=== PATIENT | female | born 1955 | race Caucasian/White ===

== ENCOUNTER → 2017-04-22 | Outpatient (CLI) | payer BC ==
--- NOTE | 2017-04-22 10:46 | REPMRS ---
Patient History The patient states she had a clinical breast exam in 03/2017. Patient is postmenopausal. Family history of breast cancer in maternal grandmother at age 50 or over. Digital Woman Screen Mammo: April 22, 2017 - Exam #: [id number] Bilateral CC and MLO view(s) were taken. Technologist: Fide Oliver, Technologist Prior study comparison: February 20, 2016, digital woman screen mammo performed at [facility]. May 11, 2014, digital woman screen mammo performed at [facility]. April 21, 2013, digital woman screen mammo performed at [facility]. FINDINGS: The breast tissue is almost entirely fat. There has been no change in the appearance of the mammogram from the prior studies. There is no interval development of dominant mass, architectural distortion, or clustered microcalcification typical of malignancy. ASSESSMENT: BI-RADS/ACR category 1 mammogram. Negative. Recommendation Routine screening mammogram of both breasts in 1 year (for women over age 40). This mammogram was interpreted with the aid of an FDA-approved computer-aided dectection system. Electronically Signed By: Salvatore Manning MD 04/22/17 2618
== END ==
LOC: M WHC 08:04
PROVIDERS: ATTEND Nurse Practitioner Women's Health
DX: Z12.31 Encounter for screening mammogram for malignant neoplasm of breast (principal)

== ENCOUNTER → 2017-04-22 | Outpatient (REF) | payer BC | LOC: M SFHCWAGY 08:37 | PROVIDERS: ATTEND Nurse Practitioner Women's Health | DX: Z12.4 Encounter for screening for malignant neoplasm of cervix (principal) ==

== ENCOUNTER → 2018-04-23 | Outpatient (CLI) | payer BC | LOC: M WHC 08:08 | DX: Z12.31 Encounter for screening mammogram for malignant neoplasm of breast (principal); Z78.0 Asymptomatic menopausal state; Z80.3 Family history of malignant neoplasm of breast | CPT/HCPCS: 77067 ==

== ENCOUNTER → 2018-08-07 | Outpatient (CLI) | payer BC ==
--- NOTE | 2018-08-07 10:17 | REP ---
PA and lateral chest: There are no comparisons. The lung cespedes are clear. The cardiac size is normal. The yao, mediastinum, and skeletal structures are unremarkable. Impression: Negative PA and lateral chest. The lung cespedes are clear. Electronically Signed by Chandan Malone MD 08/07/2018 10:09 A
== END ==
LOC: M RAD 07:48
PROVIDERS: ATTEND Nurse Practitioner Adult Health
DX: R05 Cough (principal)

== ENCOUNTER → 2019-07-21 | Outpatient (CLI) | payer BC ==
--- NOTE | 2019-07-21 11:42 | REPMRS ---
Patient History The patient states she had a clinical breast exam in June 2019. Family history of breast cancer at age 50 or over in maternal grandmother. No Hormone Replacement Therapy Digital Woman Screen Mammo: July 21, 2019 - Exam #: [id number] Bilateral CC and MLO view(s) were taken. Technologist: Chayito Louie Technologist Prior study comparison: April 23, 2018, bilateral digital woman screen mammo performed at [facility]. April 22, 2017, digital woman screen mammo performed at [facility]. February 20, 2016, digital woman screen mammo performed at [facility]. FINDINGS: The breast tissue is almost entirely fat. There has been no change in the appearance of the mammogram from the prior studies. There is no interval development of dominant mass, architectural distortion, or grouped microcalcification typical of malignancy. 3-D tomosynthesis shows no additional findings. Assessment: BI-RADS/ACR category 1 mammogram. Negative Mammogram. Recommendation Routine screening mammogram of both breasts in 1 year (for women over age 40). This patient's Lifetime Breast Cancer RIsk is estimated at 9.8 %. This mammogram was interpreted with the aid of an FDA-approved computer-aided dectection system. Electronically Signed By: Salvatore Manning MD 07/21/19 2434
== END ==
LOC: M WHC 08:36
PROVIDERS: ATTEND Nurse Practitioner Women's Health
DX: Z12.31 Encounter for screening mammogram for malignant neoplasm of breast (principal)

== ENCOUNTER → 2020-03-15 | Outpatient (CLI) | payer BC ==
[~2020-03-15] MED LIST: GOOD81CH2 PO; IRBE150T14 PO; MULTCAP PO; VITA-243 PO; VITA400C53 PO; XALA0.007 OU
== END ==
LOC: M LABSMTC 12:10
PROVIDERS: ATTEND Anesthesiology
DX: Z01.812 Encounter for preprocedural laboratory examination (principal); Z20.828 Contact with and (suspected) exposure to other viral communicable diseases
CPT/HCPCS: C9803; U0003

== ENCOUNTER 2020-03-20 08:13 | Day surgery (SDC) | payer BC ==
[~2020-03-20] VITALS: Ht 160 cm; Wt 103.9 kg
[~2020-03-20 08:13] MED LIST changes: +NS 1,000 ML IV ONE
[2020-03-20] MEDS ORDERED: LIDOCAINE 2% 100MG/5ML SDV (FOR ANES.) As Ordered ONE (09:12)
[2020-03-20] MEDS ORDERED: propofoL 200 MG/20 ML VIAL As Ordered ONE (09:12)
--- NOTE | 2020-03-20 09:57 | ROOR ---
Patient Name: Shelly Bojorquez Procedure Date: 03/20/2020 9:28 AM Date of : 1955 Age: 65 Room: [facility] Gender: Female Note Status: Finalized Procedure: Total Colonoscopy to Cecum Indications: Screening for colorectal malignant neoplasm Providers: Cody Del Rio MD Referring MD: Kirsty Demarco NP Requesting Provider: Medicines: Monitored Anesthesia Care Complications: No immediate complications. Procedure: Pre-Anesthesia Assessment: - The heart rate, respiratory rate, oxygen saturations, blood pressure, adequacy of pulmonary ventilation, and response to care were monitored throughout the procedure. The Colonoscope was introduced through the anus and advanced to the cecum, identified by appendiceal orifice and ileocecal valve. The colonoscopy was performed without difficulty. The patient tolerated the procedure well. The quality of the bowel preparation was excellent. Findings: The perianal and digital rectal examinations were normal. Non-bleeding internal hemorrhoids were found during retroflexion. The hemorrhoids were small and Grade I (internal hemorrhoids that do not prolapse). No other significant abnormalities were identified in a careful examination of the remainder of the colon. The exam was otherwise without abnormality on direct and retroflexion views. Impression: - Non-bleeding internal hemorrhoids. - The examination was otherwise normal on direct and retroflexion views. - No specimens collected. - The exam was otherwise normal to the cecum. Recommendation: - Patient has a contact number available for emergencies. The signs and symptoms of potential delayed complications were discussed with the patient. Return to normal activities tomorrow. Written discharge instructions were provided to the patient. - High fiber diet. - Discharge patient to home. - Continue present medications. - Repeat colonoscopy in 10 years for screening purposes. - Return to referring physician. - The findings and recommendations were discussed with the patient. Cody Del Rio MD Cody Del Rio MD 03/20/2020 9:56:11 AM Electronically signed by Cody Del Rio MD Number of Addenda: 0 Note Initiated On: 03/20/2020 9:28 AM Estimated Blood Loss: Estimated blood loss: none.
[2020-03-20 10:25] VITALS: BP 187/71
== END 2020-03-20 10:39 | disposition home or self-care (01) ==
LOC: M OPP 08:13
PROVIDERS: ATTEND Internal Medicine Gastroenterology
DX: Z12.11 Encounter for screening for malignant neoplasm of colon (principal); K64.0 First degree hemorrhoids; I10 Essential (primary) hypertension; Z79.82 Long term (current) use of aspirin; Z79.899 Other long term (current) drug therapy

== ENCOUNTER → 2021-12-13 | Outpatient (REF) ==
[~2021-12-13] MED LIST changes: -NS 1,000 ML IV ONE
== END ==
LOC: M EMP 08:58
PROVIDERS: ATTEND Family Medicine
DX: Z20.822 Contact with and (suspected) exposure to COVID-19 (principal)

== ENCOUNTER → 2022-02-14 | Outpatient (CLI) | payer BC | LOC: M WHC 16:01 | PROVIDERS: ATTEND Physician Assistant Medical | DX: Z12.31 Encounter for screening mammogram for malignant neoplasm of breast (principal) ==

== ENCOUNTER → 2022-06-13 | Outpatient (CLI) | payer BC, MEDICARE ==
[~2022-06-13] MED LIST changes: +D-50TAB PO; -GOOD81CH2 PO; +LATA0.0015 OU; +PANT40TA29 PO; +RA A81CH3 PO; +VITAE40CA PO
== END ==
LOC: M LABSMTC 10:42
PROVIDERS: ATTEND Anesthesiology
DX: Z01.812 Encounter for preprocedural laboratory examination (principal); Z11.52 Encounter for screening for COVID-19

== ENCOUNTER 2022-06-18 11:56 | Day surgery (SDC) | payer MEDICARE ==
[~2022-06-18] VITALS: Ht 160 cm; Wt 102.5 kg
[~2022-06-18 11:56] MED LIST changes: +NS 1,000 ML IV ONE
[2022-06-18] MEDS ORDERED: LIDOCAINE 2% 100MG/5ML SDV (FOR ANES.) As Ordered ONE (14:29)
[2022-06-18] MEDS ORDERED: propofoL 200 MG/20 ML VIAL As Ordered ONE (14:29)
[2022-06-18 15:03] VITALS: BP 140/70
== END 2022-06-18 15:04 | disposition home or self-care (01) ==
LOC: M OPP 11:56
PROVIDERS: ATTEND Internal Medicine Gastroenterology
DX: K44.9 Diaphragmatic hernia without obstruction or gangrene (principal); R05.3 Chronic cough; R12 Heartburn; Z79.82 Long term (current) use of aspirin; Z79.899 Other long term (current) drug therapy; I10 Essential (primary) hypertension

== ENCOUNTER 2025-03-17 11:06 | Day surgery (SDC) | payer MEDICARE ==
[~2025-03-17] VITALS: Ht 160 cm; Wt 101.2 kg
[~2025-03-17 11:06] MED LIST changes: +ASPI-663 PO; +ATOR40TA75 PO; -NS 1,000 ML IV ONE; -RA A81CH3 PO
[2025-03-17] MEDS ORDERED: LIDOCAINE 2% 100 MG/5 ML SDV (FOR ANES.) As Ordered ONE (11:17)
[2025-03-17 14:11] VITALS: TEMP 98.3
[2025-03-17 14:26] VITALS: BP 120/59; O2SAT 100
== END 2025-03-17 14:47 | disposition home or self-care (01) ==
LOC: M OPP 11:06
PROVIDERS: ATTEND Internal Medicine Gastroenterology
DX: K44.9 Diaphragmatic hernia without obstruction or gangrene (principal); R05.3 Chronic cough; Z91.048 Other nonmedicinal substance allergy status; Z79.899 Other long term (current) drug therapy
CPT/HCPCS: 43235; 91035; J3010